=== PATIENT | male | born 1945 | race Asian ===

== ENCOUNTER 2017-10-24 22:40 | Inpatient (IN) | payer MEDICAID ==
[2017-10-24] MEDS: KETOROLAC 15 MG INJ IV (22:58)
[2017-10-24] MEDS: SOD CHLORIDE 0.9% 500 ML IV (22:59)
[2017-10-24] MEDS: DIPHTH/TET/ACEL PERTUSS (ADULT) 0.5 ML VIAL IM* (22:59)
[2017-10-24 23:28] LABS: ADD MAN DIFF? NO
[2017-10-24 23:29] LABS: BASOPHILS % 0.5 % (0.0-2.0); EOSINOPHILS # 0.2 10^3/ul (0.0-0.5); EOSINOPHILS % 2.7 % (0.0-7.0); HEMATOCRIT 41.1 % (42.0-52.0); LYMPHOCYTES % 31.9 % (15.0-51.0); MEAN CORPUSCULAR HEMOGLOBIN 30.8 pg (29.0-33.0); MEAN CORPUSCULAR HGB CONC 34.1 g/dl (32.0-37.0); MEAN CORPUSCULAR VOLUME 90.3 fl (82.0-101.0); MEAN PLATELET VOLUME 9.4 fl (7.4-10.4); MONOCYTE # 0.8 10^3/ul (0.3-0.9); MONOCYTES % 12.2 % (0.0-11.0); NEUTROPHIL # 3.2 10^3/ul (1.6-7.5); NEUTROPHILS % 52.2 % (39.0-77.0); PLATELET COUNT 314 10^3/UL (140-415); RED BLOOD COUNT 4.55 10^6/ul (4.70-6.10); RED CELL DISTRIBUTION WIDTH 13.5 % (11.5-14.5)
[2017-10-24 23:29] LABS: WHITE BLOOD COUNT 6.2 10^3/ul (4.8-10.8)
[2017-10-24 23:47] LABS: ALANINE AMINOTRANSFERASE 25 IU/L (13-69); ALBUMIN 4.1 g/dl (3.3-4.9); ALBUMIN/GLOBULIN RATIO 1.05; ALKALINE PHOSPHATASE 93 IU/L (42-121); ANION GAP 17 (8-16); ASPARTATE AMINO TRANSFERASE 22 IU/L (15-46); BILIRUBIN,INDIRECT 0.5 mg/dl (0-1.1); BILIRUBIN,TOTAL 0.5 mg/dl (0.2-1.3); BLOOD UREA NITROGEN 13 mg/dl (7-20); CALCIUM 9.2 mg/dl (8.4-10.2); CARBON DIOXIDE 25 mmol/L (21-31); CHLORIDE 102 mmol/L (97-110); CREATININE 1.33 mg/dl (0.61-1.24); GLUCOSE 110 mg/dl (70-220); LIPASE 51 U/L (23-300); POTASSIUM 3.6 mmol/L (3.5-5.1); SODIUM 140 mmol/L (135-144)
[2017-10-25 00:01] LABS: TROPONIN-I < 0.012 ng/ml (0.000-0.120)
[2017-10-25 00:13] LABS: ADD UMIC NO; UR ASCORBIC ACID NEGATIVE (NEGATIVE); UR BILIRUBIN (Dip) NEGATIVE (NEGATIVE); UR BLOOD (Dip) NEGATIVE (NEGATIVE); UR CLARITY CLEAR (CLEAR); UR COLOR STRAW (YELLOW); UR GLUCOSE (Dip) NEGATIVE (NEGATIVE); UR KETONES (Dip) NEGATIVE (NEGATIVE); UR LEUKOCYTE ESTERASE (Dip) NEGATIVE Leu/ul (NEGATIVE); UR NITRITE (Dip) NEGATIVE (NEGATIVE); UR SPECIFIC GRAVITY (Dip) 1.005 (1.003-1.030); UR TOTAL PROTEIN (Dip) NEGATIVE (NEGATIVE); UR UROBILINOGEN (Dip) NEGATIVE (NEGATIVE)
[2017-10-25] MEDS: CEFTRIAXONE 1 GM/50 ML (PMX) 50 ML IVPB ×2 (00:28→07:43)
[2017-10-25] MEDS ORDERED: hydrALAzine 20 MG INJ IV (00:30)
[2017-10-25] MEDS ORDERED: morphine LIQ (10 MG/5 ML) CUP PO (00:30)
[2017-10-25] MEDS ORDERED: NACL 0.9% 3 ML SYG IV (00:30)
[2017-10-25] MEDS ORDERED: ONDANSETRON 4 MG INJ IV (00:30)
[2017-10-25] MEDS ORDERED: ACETAMINOPHEN 325 MG TAB PO (00:30)
[2017-10-25] MEDS: AZITHROMYCIN 500MG/NS (PMX) 250 ML IVPB (01:43)
[2017-10-25] MEDS: SOD CHLORIDE 0.9% 1,000 ML IV ×2 (01:44→13:44)
[2017-10-25] MEDS ORDERED: ALBUTEROL HFA 8 GM INHALER INH (05:00)
[2017-10-25] MEDS ORDERED: GLUCAGON 1 MG INJ IM (05:30)
[2017-10-25] MEDS ORDERED: GLUCOSE GEL 15 GRAM TUBE BUCCAL (05:30)
[2017-10-25] MEDS ORDERED: GLUCOSE GEL 15 GRAM TUBE PO ×2 (05:30)
[2017-10-25] MEDS ORDERED: DEXTROSE 50% 50 ML SYRINGE IV ×2 (05:30)
[2017-10-25] MEDS ORDERED: PENDING SANTYL ORDER FOR WOUND CARE XX (06:00)
[2017-10-25] MEDS: CLINDAMYCIN 600 MG/D5W (PMX) 50 ML IVPB ×2 (07:43→14:05)
[2017-10-25 07:44] LABS: ADD MAN DIFF? NO
[2017-10-25 07:53] LABS: WHITE BLOOD COUNT 4.7 10^3/ul (4.8-10.8)
[2017-10-25 07:53] LABS: BASOPHILS % 0.4 % (0.0-2.0); EOSINOPHILS # 0.2 10^3/ul (0.0-0.5); EOSINOPHILS % 3.4 % (0.0-7.0); HEMATOCRIT 37.4 % (42.0-52.0); HEMOGLOBIN 12.8 g/dl (14.0-18.0); LYMPHOCYTES # 1.1 10^3/ul (0.8-2.9); LYMPHOCYTES % 23.8 % (15.0-51.0); MEAN CORPUSCULAR HEMOGLOBIN 30.9 pg (29.0-33.0); MEAN CORPUSCULAR HGB CONC 34.2 g/dl (32.0-37.0); MEAN CORPUSCULAR VOLUME 90.3 fl (82.0-101.0); MEAN PLATELET VOLUME 9.2 fl (7.4-10.4); MONOCYTE # 0.6 10^3/ul (0.3-0.9); MONOCYTES % 11.9 % (0.0-11.0); NEUTROPHIL # 2.8 10^3/ul (1.6-7.5); NEUTROPHILS % 60.3 % (39.0-77.0); PLATELET COUNT 286 10^3/UL (140-415); RED BLOOD COUNT 4.14 10^6/ul (4.70-6.10); RED CELL DISTRIBUTION WIDTH 13.5 % (11.5-14.5)
[2017-10-25 08:18] LABS: ALANINE AMINOTRANSFERASE 25 IU/L (13-69); ALBUMIN 3.5 g/dl (3.3-4.9); ALBUMIN/GLOBULIN RATIO 1.02; ALKALINE PHOSPHATASE 80 IU/L (42-121); ANION GAP 14 (8-16); ASPARTATE AMINO TRANSFERASE 22 IU/L (15-46); BILIRUBIN,INDIRECT 0.4 mg/dl (0-1.1); BILIRUBIN,TOTAL 0.4 mg/dl (0.2-1.3); BLOOD UREA NITROGEN 11 mg/dl (7-20); CALCIUM 8.5 mg/dl (8.4-10.2); CARBON DIOXIDE 25 mmol/L (21-31); CHLORIDE 107 mmol/L (97-110); CHOL/HDL RATIO 4.6 RATIO; CHOLESTEROL 154 mg/dl (100-200); CREATININE 0.94 mg/dl (0.61-1.24); GLUCOSE 103 mg/dl (70-220); HDL CHOLESTEROL 33 mg/dl (31-75); LDL CHOLESTEROL,CALCULATED 90 mg/dl; MAGNESIUM 2.1 mg/dl (1.7-2.5); POTASSIUM 3.9 mmol/L (3.5-5.1); SODIUM 142 mmol/L (135-144); TOTAL PROTEIN 6.9 g/dl (6.1-8.1); TRIGLYCERIDES 157 mg/dl (0-149)
[2017-10-25] MEDS: FLUTICASONE 0.05% 16 GM NAS SPRAY NASAL (08:19)
[2017-10-25] MEDS: HYDROCHLOROTHIAZIDE 12.5 MG CAP PO (08:20)
[2017-10-25] MEDS: DOCUSATE SODIUM 100 MG CAP PO ×2 (08:20→21:06)
[2017-10-25] MEDS: LOSARTAN 50 MG TAB PO (08:20)
[2017-10-25] MEDS: AMLODIPINE 10 MG TAB PO (08:20)
[2017-10-25] MEDS: LORATADINE 10 MG TAB PO (08:20)
[2017-10-25] MEDS: metFORMIN 500 MG TAB PO ×2 (08:20→17:12)
[2017-10-25] MEDS: GUAIFENESIN LA 600 MG TABSR PO ×2 (08:21→10:24)
[2017-10-25] MEDS: HEPARIN 5,000 UNIT/0.5 ML VIAL SC ×2 (08:29→21:07)
[2017-10-25 09:04] LABS: HEMOGLOBIN A1C 6.2 % (0-5.9)
[2017-10-25] MEDS: METHYLPREDNISOLONE 40 MG INJ IV ×2 (10:23→21:06)
[2017-10-25] MEDS: PIPER-TAZO 3.375 GM IV (PMX) 100 ML IVPB ×2 (15:52→22:00)
[2017-10-25] MEDS: ACETYLCYSTEINE 20% 4 ML VIAL NEB (19:46)
[2017-10-25] MEDS: ALBUTEROL 0.083% (NEB) 2.5 MG/3 ML AMP HHN (19:46)
[2017-10-25] MEDS: MONTELUKAST 10 MG TAB PO (21:06)
[2017-10-26] MEDS: ALBUTEROL/IPRATROPIUM (NEB) 3 ML AMP HHN (01:11)
[2017-10-26] MEDS: ACETYLCYSTEINE 20% 4 ML VIAL NEB ×3 (01:11→13:51)
[2017-10-26] MEDS: NEOMYC/POLYMYX/BACIT 0.9 GM OINT TOP ×2 (01:52→02:00)
[2017-10-26] MEDS: PIPER-TAZO 3.375 GM IV (PMX) 100 ML IVPB ×2 (06:27→13:32)
[2017-10-26] MEDS: ALBUTEROL 0.083% (NEB) 2.5 MG/3 ML AMP HHN ×2 (07:41→13:51)
[2017-10-26 07:50] LABS: ADD MAN DIFF? NO
[2017-10-26 07:58] LABS: WHITE BLOOD COUNT 6.9 10^3/ul (4.8-10.8)
[2017-10-26 07:58] LABS: BASOPHILS % 0.1 % (0.0-2.0); HEMATOCRIT 38.9 % (42.0-52.0); HEMOGLOBIN 13.2 g/dl (14.0-18.0); LYMPHOCYTES # 0.7 10^3/ul (0.8-2.9); LYMPHOCYTES % 10.5 % (15.0-51.0); MEAN CORPUSCULAR HEMOGLOBIN 30.6 pg (29.0-33.0); MEAN CORPUSCULAR HGB CONC 33.9 g/dl (32.0-37.0); MEAN PLATELET VOLUME 9.2 fl (7.4-10.4); MONOCYTE # 0.2 10^3/ul (0.3-0.9); MONOCYTES % 3.5 % (0.0-11.0); NEUTROPHIL # 5.9 10^3/ul (1.6-7.5); NEUTROPHILS % 85.3 % (39.0-77.0); PLATELET COUNT 301 10^3/UL (140-415); RED BLOOD COUNT 4.32 10^6/ul (4.70-6.10); RED CELL DISTRIBUTION WIDTH 13.3 % (11.5-14.5)
[2017-10-26 08:24] LABS: ANION GAP 17 (8-16); BLOOD UREA NITROGEN 11 mg/dl (7-20); CALCIUM 9.2 mg/dl (8.4-10.2); CARBON DIOXIDE 23 mmol/L (21-31); CHLORIDE 103 mmol/L (97-110); CREATININE 0.82 mg/dl (0.61-1.24); GLUCOSE 163 mg/dl (70-220); MAGNESIUM 2.2 mg/dl (1.7-2.5); POTASSIUM 4.1 mmol/L (3.5-5.1); SODIUM 139 mmol/L (135-144)
[2017-10-26] MEDS: METHYLPREDNISOLONE 40 MG INJ IV (08:29)
[2017-10-26] MEDS: LORATADINE 10 MG TAB PO (08:29)
[2017-10-26] MEDS: HYDROCHLOROTHIAZIDE 12.5 MG CAP PO (08:29)
[2017-10-26] MEDS: GUAIFENESIN LA 600 MG TABSR PO (08:29)
[2017-10-26 08:30] LABS: B-TYPE NATRIURETIC PEPTIDE 67 PG/ML (0-125)
[2017-10-26] MEDS: LOSARTAN 50 MG TAB PO (08:30)
[2017-10-26] MEDS: DOCUSATE SODIUM 100 MG CAP PO (08:30)
[2017-10-26] MEDS: AMLODIPINE 10 MG TAB PO (08:30)
[2017-10-26] MEDS: FLUTICASONE 0.05% 16 GM NAS SPRAY NASAL (08:30)
[2017-10-26] MEDS: metFORMIN 500 MG TAB PO (08:38)
[2017-10-26] MEDS: HEPARIN 5,000 UNIT/0.5 ML VIAL SC (08:43)
== END 2017-10-26 15:55 | disposition home or self-care (01) | DRG 194 ==
LOC: MS4 23:49 → E/R 22:40
DX: J18.9 Pneumonia, unspecified organism (principal); N17.9 Acute kidney failure, unspecified; R55 Syncope and collapse; J44.9 Chronic obstructive pulmonary disease, unspecified; E11.9 Type 2 diabetes mellitus without complications; I10 Essential (primary) hypertension; K42.9 Umbilical hernia without obstruction or gangrene; J32.0 Chronic maxillary sinusitis; E66.9 Obesity, unspecified; S20.319A Abrasion of unspecified front wall of thorax, initial encounter; S00.81XA Abrasion of other part of head, initial encounter; Z68.33 Body mass index [BMI] 33.0-33.9, adult; Z87.891 Personal history of nicotine dependence; Z79.84 Long term (current) use of oral hypoglycemic drugs; W18.39XA Other fall on same level, initial encounter; Y92.003 Bedroom of unspecified non-institutional (private) residence as the place of occurrence of the external cause
CPT/HCPCS: 36415; 70450; 70486; 71045; 72125; 73130-LT; 80048; 80053; 80061; 81003; 83036; 83690; 83735; 83880; 84100; 84443; 84484; 85025; 87040; 87070; 90471; 90715; 93005; 93306; 93880; 94640; 94664; 96374; 96375; 97161; 99285-25